=== PATIENT | male | born 2000 | race Two or more races ===

== ENCOUNTER 2020-03-31 12:13 | Emergency (ER) | payer OTHER ==
[~2020-03-31] VITALS: Ht 188 cm; Wt 111.6 kg
--- NOTE | 2020-03-31 12:31 | NUR ---
LOWER ABD PAIN AND DIARRHEA X2 WEEKS, CRAMPING 10/10 THIS AM FOR A BRIEF PERIOD-THUS PRESENTS TO ER NO RECENT ABX, NO MEDICAL HX
[2020-03-31] MEDS ORDERED: MORPHINE SULFATE 4 MG/ML, 1ML ONE ×2 (13:04→14:08)
[2020-03-31] MEDS ORDERED: ONDANSETRON 2MG/ML, 2ML ONE (13:04)
[2020-03-31 13:18] LABS: ALANINE AMINOTRANSFERASE 32 U/L (12-78); ALBUMIN 4.1 g/dL (3.4-5.0); ANION GAP 5 mmol/L (5-15); CALCIUM 9.2 mg/dL (8.5-10.1); CHLORIDE 109 mmol/L (98-107)
[2020-03-31 13:20] VITALS: BP 121/68
[2020-03-31 13:21] LABS: ALKALINE PHOSPHATASE 93 U/L (45-117); TOTAL PROTEIN 7.6 g/dL (6.4-8.2)
--- NOTE | 2020-03-31 13:21 | NUR ---
PIV PLACED-PATIENT THEN MEDICATED PER EMAR FOR BILAT LOWER QUAD ABD PAIN AT 7/10 PLACED ON BIBP/POX UPDATED ON ESTIMATED POC
--- NOTE | 2020-03-31 13:27 | NUR ---
TO CT SCAN
[2020-03-31 13:28] LABS: BASOPHILS # (AUTO) 0.03 x10^3/uL (0-0.3); BASOPHILS % (AUTO) 0 % (0-1); EOSINOPHILS # (AUTO) 0.12 x10^3/uL (0-0.8); EOSINOPHILS % (AUTO) 1 % (1-7); LYMPHOCYTES # (AUTO) 2.41 x10^3/uL (1-6.1); LYMPHOCYTES % (AUTO) 22 % (22-44); MD NO; MEAN CORPUSCULAR HEMOGLOBIN 32.5 pg (27.5-34.5); MEAN CORPUSCULAR HGB CONC 34.2 g/dL (33.2-36.2); MEAN CORPUSCULAR VOLUME 95.2 fL (81-97); MEAN PLATELET VOLUME 7.7 fL (7.4-10.4); MONOCYTES # (AUTO) 0.39 x10^3/uL (0-1.4); MONOCYTES % (AUTO) 4 % (2-9); NEUTROPHILS # (AUTO) 7.88 x10^3/uL (1.8-8.0); NEUTROPHILS % (AUTO) 73 % (42-75); PLATELET COUNT 301 x10^3/uL (130-400); RED BLOOD COUNT 5.04 x10^6/uL (4.38-5.82); RED CELL DISTRIBUTION WIDTH 12.6 % (9.4-14.8)
[2020-03-31 13:34] LABS: MICROSCOPIC INDICATED
--- NOTE | 2020-03-31 13:52 | NUR ---
WITH REASSESSMENT PATIENT REPORTS PAIN IMPROVED TO 2/10 VSS UPDATED ON ESTIMATED POC
[2020-03-31] MEDS ORDERED: SODIUM CHLORIDE FLUSH 10ML SYR IVF ONE (14:00)
[2020-03-31] MEDS ORDERED: ONDANSETRON 2MG/ML, 2ML IVPush ONE (14:00)
[2020-03-31] MEDS ORDERED: MORPHINE SULFATE 4 MG/ML, 1ML IVPush PRN (14:00)
[2020-03-31] MEDS ORDERED: OMNIPAQUE 350 MG/ML, 100ML BOTTLE ONE (15:09)
== END 2020-03-31 14:25 | disposition home or self-care (01) ==
LOC: ED 14:13
DX: R10.30 Lower abdominal pain, unspecified (principal)
CPT/HCPCS: 36415; 74177; 80053; 81001; 85025; 96374; 96375; 99285; J2270; J2405; Q9967